=== PATIENT | male | born 1970 | race Caucasian/White ===

== ENCOUNTER 2020-08-25 15:19 | Inpatient (IN) | payer OTHER, SELFPAY ==
[~2020-08-25] VITALS: Ht 182.9 cm; Wt 90.7 kg
[2020-08-25 15:30] VITALS: Ht 182.9 cm; Wt 90.7 kg
[2020-08-25 17:21] LABS: PLATELET COUNT 354 x10^3mcL (130-400); RED CELL DISTRIBUTION WIDTH 13.8 % (11.5-14.5)
[2020-08-25 17:24] LABS: BASOPHIL % 0 % (0-2)
[2020-08-25 17:35] LABS: CALCIUM 8.1 mg/dL (8.5-10.1); CHLORIDE SERUM 100 mmol/L (98-107); CREATININE SERUM 1.1 mg/dL (0.7-1.3); GFR1 > 60 mL/min; GLUCOSE SERUM 132 mg/dL (74-106); POTASSIUM SERUM 3.7 mmol/L (3.5-5.1); SODIUM SERUM 136 mmol/L (136-145)
[2020-08-25 17:40] LABS: ALKALINE PHOSPHATASE 91 U/L (46-116); ALT/SGPT 66 U/L (16-63); AST/SGOT 34 U/L (15-37); LACTIC DEHYDROGENASE (LDH) 531 U/L (100-190); TOTAL PROTEIN, SERUM 7.3 g/dL (6.4-8.2)
[2020-08-25 17:41] LABS: ALBUMIN 2.6 g/dL (3.4-5.0); C REACTIVE PROTEIN 26.9 mg/dL (<=0.9)
[2020-08-25 21:17] LABS: microscopic required? NO
[2020-08-25] MEDS ORDERED: ZITHROMAX Z-PA250 MG PO (21:25)
[2020-08-25] MEDS ORDERED: TYL650S PO (21:26)
[2020-08-25 21:32] LABS: urine erythrocyte NEGATIVE (NEGATIVE)
[2020-08-25 22:19] VITALS: BP 114/64
[2020-08-26 00:20] VITALS: BP 114/64
[2020-08-26 05:49] VITALS: BP 104/67
[2020-08-26 06:31] LABS: BASOPHIL % 0.1 % (0-2); PLATELET COUNT 385 x10^3mcL (130-400); RED CELL DISTRIBUTION WIDTH 13.7 % (11.5-14.5)
[2020-08-26 06:45] LABS: C REACTIVE PROTEIN 16.3 mg/dL (<=0.9); CALCIUM 8.1 mg/dL (8.5-10.1); CARBON DIOXIDE 24.6 mmol/L (21-32); CHLORIDE SERUM 103 mmol/L (98-107); CREATININE SERUM 0.8 mg/dL (0.7-1.3); GFR1 > 60 mL/min; GLUCOSE SERUM 133 mg/dL (74-106); MAGNESIUM 2.3 mg/dL (1.8-2.4); PHOSPHOROUS 3.6 mg/dL (2.5-4.9); POTASSIUM SERUM 3.8 mmol/L (3.5-5.1); SODIUM SERUM 138 mmol/L (136-145)
[2020-08-26 07:48] LABS: ERYTHROCYTE SED RATE 63 mm/hr (0-15)
[2020-08-26 08:53] VITALS: BP 107/62
[2020-08-26 11:55] VITALS: BP 100/65
[2020-08-26 16:21] VITALS: BP 103/62
[2020-08-26 20:40] VITALS: BP 100/60
[2020-08-27 05:40] VITALS: BP 109/66
[2020-08-27 06:56] LABS: RED CELL DISTRIBUTION WIDTH 13.7 % (11.5-14.5)
[2020-08-27 07:05] LABS: BASOPHIL % 0 % (0-2); PLATELET COUNT 492 x10^3mcL (130-400)
[2020-08-27 07:20] LABS: CALCIUM 8.4 mg/dL (8.5-10.1); CARBON DIOXIDE 21.5 mmol/L (21-32); CHLORIDE SERUM 104 mmol/L (98-107); CREATININE SERUM 0.8 mg/dL (0.7-1.3); GFR1 > 60 mL/min; GLUCOSE SERUM 118 mg/dL (74-106); MAGNESIUM 2.1 mg/dL (1.8-2.4); PHOSPHOROUS 4.2 mg/dL (2.5-4.9); POTASSIUM SERUM 3.6 mmol/L (3.5-5.1); SODIUM SERUM 139 mmol/L (136-145)
[2020-08-27 08:16] VITALS: BP 103/63
[2020-08-27 12:02] VITALS: BP 105/53
[2020-08-27 17:38] VITALS: BP 113/63
[2020-08-27 20:33] VITALS: BP 114/68
[2020-08-28 05:30] VITALS: BP 111/73
[2020-08-28 06:44] LABS: CALCIUM 8.1 mg/dL (8.5-10.1); CARBON DIOXIDE 24.9 mmol/L (21-32); CHLORIDE SERUM 105 mmol/L (98-107); CREATININE SERUM 0.9 mg/dL (0.7-1.3); GFR1 > 60 mL/min; GLUCOSE SERUM 92 mg/dL (74-106); MAGNESIUM 2.2 mg/dL (1.8-2.4); PHOSPHOROUS 4.3 mg/dL (2.5-4.9); POTASSIUM SERUM 3.5 mmol/L (3.5-5.1); SODIUM SERUM 139 mmol/L (136-145)
[2020-08-28 07:16] LABS: BASOPHIL % 0.5 % (0-2); PLATELET COUNT 389 x10^3mcL (130-400); RED CELL DISTRIBUTION WIDTH 13.8 % (11.5-14.5)
[2020-08-28 08:10] VITALS: BP 112/66
[2020-08-28 12:46] VITALS: BP 112/78
[2020-08-28 16:35] VITALS: BP 105/66
[2020-08-28 20:40] VITALS: BP 106/68
[2020-08-29 07:14] VITALS: BP 94/64
[2020-08-29 09:28] VITALS: BP 98/58
[2020-08-29 12:33] VITALS: BP 99/57
[2020-08-29 14:20] LABS: RED CELL DISTRIBUTION WIDTH 13.6 % (11.5-14.5)
[2020-08-29 14:24] LABS: BASOPHIL % 5.1 % (0-2); PLATELET COUNT 609 x10^3mcL (130-400)
[2020-08-29 14:54] LABS: CALCIUM 8.1 mg/dL (8.5-10.1); CARBON DIOXIDE 19.7 mmol/L (21-32); CHLORIDE SERUM 104 mmol/L (98-107); CREATININE SERUM 0.9 mg/dL (0.7-1.3); GFR1 > 60 mL/min; GLUCOSE SERUM 195 mg/dL (74-106); MAGNESIUM 2.2 mg/dL (1.8-2.4); PHOSPHOROUS 3.6 mg/dL (2.5-4.9); SODIUM SERUM 135 mmol/L (136-145)
[2020-08-29 17:32] VITALS: BP 105/70
[2020-08-29 21:08] VITALS: BP 104/65
[2020-08-30 05:35] VITALS: BP 108/69
[2020-08-30 07:01] LABS: CALCIUM 8.5 mg/dL (8.5-10.1); CARBON DIOXIDE 25.5 mmol/L (21-32); CHLORIDE SERUM 103 mmol/L (98-107); GFR1 > 60 mL/min; GLUCOSE SERUM 88 mg/dL (74-106); MAGNESIUM 2.1 mg/dL (1.8-2.4); PHOSPHOROUS 3.8 mg/dL (2.5-4.9); POTASSIUM SERUM 4.3 mmol/L (3.5-5.1); SODIUM SERUM 137 mmol/L (136-145)
[2020-08-30 07:18] LABS: BASOPHIL % 0.2 % (0-2); RED CELL DISTRIBUTION WIDTH 13.6 % (11.5-14.5)
[2020-08-30 08:28] LABS: PLATELET COUNT 635 x10^3mcL (130-400)
[2020-08-30 09:29] VITALS: BP 99/62
[2020-08-30] MEDS ORDERED: DECADRON6 MG PO (10:32)
[2020-08-30] MEDS ORDERED: METER-CHECK1 EACH MC (10:32)
[2020-08-30] MEDS ORDERED: GLUCOCARD 01 S1 EACH MC (10:32)
[2020-08-30] MEDS ORDERED: GLUMETZA1000 MG PO (10:32)
[2020-08-30] MEDS ORDERED: EASY COMFORT ALCO70% TOP (10:32)
[2020-08-30 13:18] VITALS: BP 96/60
[2020-08-30 16:33] VITALS: BP 103/65
[2020-08-30 21:00] VITALS: BP 99/61
[2020-08-31 05:22] VITALS: BP 98/57
[2020-08-31 07:12] LABS: BASOPHIL % 0.2 % (0-2); RED CELL DISTRIBUTION WIDTH 13.2 % (11.5-14.5)
[2020-08-31 07:36] LABS: ALKALINE PHOSPHATASE 78 U/L (46-116); ALT/SGPT 74 U/L (16-63); AST/SGOT 19 U/L (15-37); BILIRUBIN TOTAL 0.7 mg/dL (0.20-1.00); C REACTIVE PROTEIN 4.2 mg/dL (<=0.9); CALCIUM 8.6 mg/dL (8.5-10.1); CARBON DIOXIDE 23.2 mmol/L (21-32); CHLORIDE SERUM 103 mmol/L (98-107); CREATININE SERUM 0.8 mg/dL (0.7-1.3); GFR1 > 60 mL/min; GLUCOSE SERUM 90 mg/dL (74-106); POTASSIUM SERUM 3.8 mmol/L (3.5-5.1); SODIUM SERUM 136 mmol/L (136-145); TOTAL PROTEIN, SERUM 6.9 g/dL (6.4-8.2)
[2020-08-31 07:37] LABS: ALBUMIN 2.6 g/dL (3.4-5.0)
[2020-08-31 08:43] VITALS: BP 105/53
[2020-08-31 09:08] LABS: PLATELET COUNT 769 x10^3mcL (130-400)
[2020-08-31] MEDS ORDERED: EASY COMFORT ALCO70% TOP (15:30)
[2020-08-31] MEDS ORDERED: DECADRON6 MG PO (15:30)
[2020-08-31] MEDS ORDERED: GLUMETZA1000 MG PO (15:30)
[2020-08-31] MEDS ORDERED: GLUCOCARD 01 S1 EACH MC (15:30)
[2020-08-31] MEDS ORDERED: METER-CHECK1 EACH MC (15:30)
== END 2020-08-31 14:17 | disposition home or self-care (01) | DRG 177 ==
LOC: ED 15:19 → DU 18:52
PROVIDERS: Emergency Medicine; Internal Medicine; ADMIT Student in an Organized Health Care Education/Training Program; ATTEND Student in an Organized Health Care Education/Training Program
DX: U07.1 COVID-19 (principal); J12.89 Other viral pneumonia; J96.01 Acute respiratory failure with hypoxia; J96.02 Acute respiratory failure with hypercapnia; E11.9 Type 2 diabetes mellitus without complications; E83.51 Hypocalcemia; Z90.49 Acquired absence of other specified parts of digestive tract; Z79.899 Other long term (current) drug therapy
CPT/HCPCS: 36600; 82962; 83880; 85378; 87804; G0378; J0456; J0696; J1100; J1644; J1815; J3535; J7040; J7050; J7060; Q0092; U0003